=== PATIENT | male | born 1975 | race Two or more races ===

== ENCOUNTER 2019-04-30 11:00 | Emergency (ER) | payer OTHER ==
[2019-04-30] MEDS ORDERED: KETOROLAC TROMETHAMINE 60 MG/2 ML SDV IM ONE (12:58)
[2019-04-30] MEDS ORDERED: OXYCODONE-ACETAMINOPHEN 5-325 MG TABLET PO ONE (12:58)
[2019-04-30] MEDS ORDERED: LIDOCAINE 5% (700 MG) TRANSDERMAL ADH..PATCH TP ONE (12:58)
--- NOTE | 2019-04-30 13:35 | RADIOLOGY REPORT (SQ) ---
EXAM DESCRIPTION: CT LUMBAR SPINE WITHOUT COMPLETED DATE/TIME: 04/30/2019 1:23 pm REASON FOR STUDY: Low back pain with sciatica, sudden onset COMPARISON: None. TECHNIQUE: Axial images acquired through the lumbar spine without intravenous contrast. Images revi ewed with lung, soft tissue and bone windows. Reconstructed coronal and sagittal MPR images reviewed . All images stored on PACS. All CT scanners at this facility use dose modulation, iterative reconstruction, and/or weight based d osing when appropriate to reduce radiation dose to as low as reasonably achievable (ALARA). [facility]: Dose Right [facility]: CareDose [facility]: Dose Right [facility]: Teradose 4D [facility]: [employer] RADIATION DOSE: 656 mGy cm LIMITATIONS: None. FINDINGS: SEGMENTATION: Normal. No transitional anatomy. ALIGNMENT: Normal. VERTEBRAL BODIES: No fractures. No dislocation. No acute findings. DISCS: Small broad-based central posterior disc bulges at L4-L5 and L5-S1. PEDICLES, TRANSVERSE PROCESSES: No fractures. No dislocation. No acute findings. FACETS, POSTERIOR ELEMENTS: No fractures. No dislocation. No spinal stenosis. HARDWARE: None in the spine. VISUALIZED RIBS: No fractures. SOFT TISSUES: No significant or acute finding in adjacent soft tissues. OTHER: Nonobstructive bilateral nephrolithiasis. IMPRESSION: 1. No fracture or dislocation of the lumbar spine. Small broad-based central posterior disc bulges at L4-L5 and L5-S1. No obvious disc extrusion, central lumbar stenosis, or neural betzaida inal stenosis. Consider MRI to further evaluate lumbar disc and neural foraminal pathology in the se tting of localizing signs and symptoms. 2. Nonobstructive bilateral nephrolithiasis. TECHNICAL DOCUMENTATION: JOB ID: [id number] Quality ID # [id number]: Final reports with documentation of one or more dose reduction techniques (e.g., Au tomated exposure control, adjustment of the mA and/or kV according to patient size, use of iterative reconstruction technique) 2010 [employer]- All Rights Reserved Reading location - IP/workstation name: [email or web address]
[2019-04-30] MEDS ORDERED: DEXAMETHASONE SOD PHOS INJ 10 MG/1 ML VIAL IM ONE (13:39)
--- NOTE | 2019-04-30 13:39 | ER Document Report ---
HPI - HPI Time Seen by Provider: 04/30/19 12:51 Pain Level: 4 Notes: This is an otherwise healthy 43-year-old male presenting to the emergency department from the [place] [facility] with complaints of back pain. Patient reports approximately 3 days ago while he was lifting an item he had sudden onset back pain. He reports pain radiates down into his right leg. He denies any bowel or bladder incontinence, denies any urinary retention and denies any saddle anesthesia or fever. Patient is able to ambulate with a steady gait. Past Medical History - General Information source: Patient - Social History Smoking Status: Never Smoker Chew tobacco use (# tins/day): No Frequency of alcohol use: None Drug Abuse: None Family History: Reviewed & Not Pertinent Patient has suicidal ideation: No Patient has homicidal ideation: No Renal/ Medical History: Denies: Hx Peritoneal Dialysis Musculoskeletal Medical History: Reports Hx Arthritis - Back Surgical Hx: Negative - Immunizations Immunizations up to date: Yes Vertical Provider Document - CONSTITUTIONAL Notes: PHYSICAL EXAMINATION: GENERAL: Well-appearing, well-nourished and in no acute distress. HEAD: Atraumatic, normocephalic. EYES: Pupils equal round extraocular movements intact, conjunctiva are normal. ENT: Nares patent NECK: Normal range of motion LUNGS: No respiratory distress Musculoskeletal: Normal range of motion, tenderness to palpation to right lumbar paraspinous area, tenderness into right buttocks. Mild vertebral tenderness over the lumbar area. No step-off or deformity noted. NEUROLOGICAL: Normal speech, normal gait. No focal neurological deficits noted. PSYCH: Normal mood, normal affect. SKIN: Warm, Dry, normal turgor, no rashes or lesions noted. Course - Re-evaluation Re-evalutation: Multiple bulging disks noted on CT as outlined by CT report. There is no evidence of cord compression. Patient reports significant relief of his pain after administration of medications here in the emergency department. Patient will be discharged in stable condition however ED return precautions were discussed. Patient has no red flag warning symptoms for back pain to include saddle anesthesia, he urinary retention or bowel or bladder incontinence. Patient will follow-up with the [place] [facility] for possible MRI or physical therapy. Discharge - Discharge Clinical Impression: Bulging lumbar disc Condition: Stable Disposition: HOME, SELF-CARE Additional Instructions: You have been seen in the Emergency Department (ED) today for back pain. Your workup and exam have not shown any acute abnormalities and you are likely suffering from muscle strain or possible problems with your discs, but there is no treatment that will fix your symptoms at this time. Please take the medications that have been prescribed as directed. You should also purchase a local lidocaine cream such as "aspercreme with lidocaine" and use per bottle instructions to the affected area. Apply heat to the area as often as you are able. Continue to keep active and avoid prolonged periods of bed rest. Please follow-up with your primary care provider at the [place] for consideration of an MRI if this pain does not ease up over the next several weeks. Please follow up with your doctor as soon as possible regarding today's ED visit and your back pain. Return to the ED for worsening back pain, fever, weakness or numbness of either leg, or if you develop either (1) an inability to urinate or have bowel movements, or (2) loss of your ability to control your bathroom functions (if you start having "accidents"), or if you develop other new symptoms that concern you.concern you. Prescriptions: Lidocaine [Lidoderm 5% (700 mg) Transdermal Patch] 1 patch TP DAILY #30 adh..patch Methocarbamol [Robaxin 750 mg Tablet] 750 mg PO Q4 #40 tablet Oxycodone HCl/Acetaminophen [Percocet 5-325 mg Tablet] 1 - 2 tab PO Q4H PRN #15 tablet PRN Reason: Forms: Return to Work Referrals: [facility] [Primary Care Provider] - Follow up as needed
== END 2019-04-30 14:01 | disposition home or self-care (01) ==
LOC: ER 11:00
DX: M51.9 Unspecified thoracic, thoracolumbar and lumbosacral intervertebral disc disorder (principal)
CPT/HCPCS: 99283; 96372; 72131; J1885; J1100